=== PATIENT | female | born 1960 | race Hispanic/Latino ===

== ENCOUNTER 2024-06-07 20:03 | Emergency (ER) | payer BC ==
[~2024-06-07] VITALS: Ht 162.6 cm; Wt 119.7 kg
[2024-06-07 20:06] VITALS: BP 148/79; PULSE 65; RESP 20; TEMP 97.9
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
[2024-06-07] MEDS ORDERED: MELO-108 PO (21:01)
[2024-06-07] MEDS: ketOROlac 60 MG VIAL (30MG/ML) IM ONE (21:03)
--- NOTE | 2024-06-07 21:06 | HMCIMG ---
Exam Type: SHOULDER COMP 2+VWS LT Clinical Information: pain, fall Comparison: None FINDINGS: The acromioclavicular joint shows hypertrophy, which may impinge upon the rotator cuff tendon. The glenohumeral joint is preserved. Visualized portions of the humerus, the scapula, and the clavicle as well as the upper ribcage are unremarkable. No pulmonary pathology is noted in the visualized portions of the upper lobe. The soft tissues are preserved. There are no other gross abnormalities. IMPRESSION: Degenerative changes of the acromioclavicular joint with hypertrophy.
--- NOTE | 2024-06-07 21:06 | HMCIMG ---
Exam Type: CHEST 1VW Clinical Information: pain, fall Comparison: None Findings: The lungs are clear of infiltrates. The heart is enlarged. Bony and soft tissue structures of the chest wall are unremarkable. IMPRESSION: Cardiomegaly. Clear lungs.
--- NOTE | 2024-06-07 21:47 | NUR ---
SLING APPLIED TO L ARM, PATIENT TOLERATED WELL
== END 2024-06-07 21:54 | disposition home or self-care (01) ==
LOC: EDH 20:03
DX: S49.92XA Unspecified injury of left shoulder and upper arm, initial encounter (principal); R07.89 Other chest pain; M79.18 Myalgia, other site; I10 Essential (primary) hypertension; E66.9 Obesity, unspecified; Z90.49 Acquired absence of other specified parts of digestive tract; Z68.42 Body mass index [BMI] 45.0-49.9, adult; W18.39XA Other fall on same level, initial encounter; Y93.89 Activity, other specified; Y92.89 Other specified places as the place of occurrence of the external cause; Y99.8 Other external cause status
CPT/HCPCS: 99284; 71045; 73030; 96372; J1885